=== PATIENT | male | born 1955 | race Caucasian/White ===

== ENCOUNTER 2017-05-05 00:56 | Inpatient (IN) | payer MEDICARE, OTHER ==
[~2017-05-05] VITALS: Ht 180.3 cm; Wt 64.9 kg
--- NOTE | 2017-05-05 00:58 | NUR ---
Patient brought into ER by sugarcane research technician. Patient agitated, threatening staff and patient's, threatening to elope, and attempting to elope the gurney. ERMD notified, orders received.
[2017-05-05] MEDS ORDERED: diphenhydrAMINE 50 MG/1 ML VIAL IM ONE (01:00)
[2017-05-05] MEDS ORDERED: LORAZEPAM 2 MG/1 ML VIAL IM ONE (01:00)
[2017-05-05] MEDS ORDERED: HALOPERIDOL LACTATE 5 MG/1 ML VIAL IM ONE (01:00)
[2017-05-05] MEDS ORDERED: diphenhydrAMINE 50 MG/1 ML VIAL ONE (01:14)
[2017-05-05] MEDS ORDERED: LORAZEPAM 2 MG/1 ML VIAL ONE (01:15)
[2017-05-05] MEDS ORDERED: HALOPERIDOL LACTATE 5 MG/1 ML VIAL ONE (01:15)
--- NOTE | 2017-05-05 01:30 | NUR ---
61 Y.O. MALE ADMITTED TO MHU FROM ER ON A 5150 FOR GD. Pt BROUGHT TO MHU VIA GURNEY ACCOMPANIED BY 2 clamshell operator. ACCORDING TO THE HOLD, THE CRISIS TEAM WAS CALLED TO EVALUATE Pt AT [facility] ER. Pt WAS SENT TO ER BY EMS AFTER APS RESPONDED TO THE MOTEL ROOM WHERE HE WAS LIVING. PER THE APS REPORT, Pt HAD NOT EATEN IN 3 DAYS AND APPEARED DELUSIONAL. Pt REPORTED HE HAS BIPOLAR DISORDER. DURING THE CRISIS TEAM ASSESSMENT, Pt APPEARED TO BE ACTIVELY HALLUCINATING (RESPONDING TO VOICES) AND DELUSIONAL. 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 Pt REFUSED TO GO TO A RECUPERATIVE CARE FACILITY THE ER ARRANGED FOR HIM. Pt WAS UNABLE TO VERBALIZE A VIABLE PLAN FOR SELF CARE AND CAN'T ANSWER BASIC QUESTIONS ABOUT WHERE TO GET FOOD OR HOUSING. RN CONCURS WITH HOLD. ADVISEMENT GIVEN TO Pt WITH Pt RIGHTS HANDBOOK. Pt TRANSFERRED TO [facility] WHERE HE BECAME AGGRESSIVE AND COMBATIVE WITH STAFF AND RECEIVED AN EMERGENCY IM OF HALDOL 5mg, ATIVAN 2mg, AND BENADRYL 50mg. UPON FACE TO FACE ASSESSMENT, Pt APPEARS TO REFLECT WHAT IS ON THE HOLD. Pt WAS UNKEMPT, DISHEVELED, AND MALODOROUS. Pt CLOTHING HAD VISIBLE STAINS AND SOILING. Pt WAS SOMEWHAT AGITATED UPON ADMISSION TO MHU, AND GUARDED WITH PERSONAL INFORMATION. Pt UNCOOPERATIVE WITH MOST ASSESSMENT QUESTIONS AND WAS SELECTIVELY MUTE. Pt STATED, "I DON'T WANT TO ANSWER ANY MORE OF YOUR QUESTIONS, LEAVE ME ALONE." APPEARS TO BE THOUGHT BLOCKING AND INTERNALLY PREOCCUPIED. Pt EXHIBITS POOR EYE CONTACT, PRESSURED SPEECH, AND RESTRICTED AFFECT. D/T LIMITED ASSESSMENT, A+O STATUS UNABLE TO BE DETERMINED AT THIS TIME. DENIES PAIN, IN NO ACUTE PHYSICAL DISTRESS AT THIS TIME. Pt PRESENT WITH LONG, THICK, DISCOLORED TOENAILS, PODIATRY CONSULT ORDERED. Pt REFUSED SHOWER. MEDICAL H/O BIPOLAR D/O, CVA, AND BLINDNESS WITH ALLERGY TO ASA. DR FAM AND DR LYNNE NOTIFIED OF ADMISSION, ORDERS RECEIVED. Pt BELONGINGS INVENTORIED WITH LICENSED STAFF PRESENT, Pt REFUSED TO SIGN PAPERWORK. BELONGINGS AND CONTRABAND PLACED IN UNIT LOCKER. Pt EDUCATED ON UNIT RULES, Pt RIGHTS, AND SAFETY, REFUSED TO PARTICIPATE.
--- NOTE | 2017-05-05 01:30 | NUR ---
Patient BIB private ambulance for Medical Clearance and GPS admission. Patient arrives labile and agitated, yelling at EMT's and staff, threatening to kill/hurt anyone that "touches him." Patient arrives on 5150 hold for GD. Per hold, patient was evaluated after Adult Protective Services responded to his hotel room and found that the patient had not eaten in days and appeared delusional. Per hold, patient hears auditory hallucinations, think's he is "Lul," and claims to own multiple businesses. IVETH reveiwed medical clearance performed at [facility], MSE performed, patient is Medically Clear at this time.
--- NOTE | 2017-05-05 01:34 | NUR ---
Pt. admitted to GPS, under care of Dr. Alexis Belongs List completed
[2017-05-05 01:35] VITALS: BP 136/84
[2017-05-05] MEDS ORDERED: ZOLPIDEM 5 MG TABLET PO PRN (01:45)
[2017-05-05] MEDS ORDERED: MAGNESIUM HYDROXIDE 30 ML LIQUID UDC PO PRN (01:45)
[2017-05-05] MEDS ORDERED: ACETAMINOPHEN 325 MG TABLET PO PRN (01:45)
[2017-05-05] MEDS ORDERED: LORAZEPAM 0.5 MG TABLET PO PRN (01:45)
[2017-05-05] MEDS ORDERED: MAG HYDROX/AL HYDROX/SIMETH 30 ML LIQUID UDC PO PRN (01:45)
--- NOTE | 2017-05-05 06:57 | NUR ---
REFUSED A.M. LABS. SLEPT 3 HOURS.
[2017-05-05 07:30] VITALS: BP 124/66
[2017-05-05 15:00] VITALS: BP 112/57
[2017-05-05 20:00] VITALS: BP 118/58
[2017-05-05] MEDS: QUETIAPINE FUMARATE 25 MG TABLET PO SCH (20:19)
[2017-05-06 04:29] LABS: *BILIRUBIN,URIN NEGATIVE (NEGATIVE); *BLOOD, URINE NEGATIVE (NEGATIVE); *CLARITY,URINE CLEAR (CLEAR); *COLOR,URINE YELLOW (YELLOW); *KETONES,URINE NEGATIVE (NEGATIVE); *PROTEIN,URINE NEGATIVE (NEGATIVE); *UROBILINOGEN,URINE 0.2 E.U./dl (NORMAL); LEUKOCYTE ESTERASE ,URINE NEGATIVE (NEGATIVE); NITRITE, URINE NEGATIVE (NEGATIVE); PH,URINE 5.5 (5.0-8.0); UGLUCOSE NEGATIVE (NEGATIVE)
[2017-05-06 04:35] LABS: BACTERIA,URINE NONE SEEN /HPF (NONE SEEN); RBC,URINE NONE SEEN /HPF (0-3); SQUAMOUS EPITHELIAL CELL,UR NONE SEEN /HPF (NONE SEEN); WBC,URINE 0-3 /HPF (0-3)
[2017-05-06 07:19] LABS: BASOPHILS # (AUTO) 0.2 K/uL (0.0-8.0); BASOPHILS % (AUTO) 2.1 % (0.0-2.0); EOSINOPHILS # (AUTO) 0.3 K/uL (0.0-0.7); EOSINOPHILS % (AUTO) 3.7 % (0.0-7.0); HEMATOCRIT 45.3 % (36.7-47.1); HEMOGLOBIN 15.1 g/dL (12.5-16.3); LYMPHOCYTES # (AUTO) 2.6 K/uL (20.0-40.0); LYMPHOCYTES % (AUTO) 28.4 % (20.5-51.5); MEAN CORPUSCULAR HEMOGLOBIN 29.6 uug (23.8-33.4); MEAN CORPUSCULAR HGB CONC 33 g/dL (32.5-36.3); MONOCYTES # (AUTO) 0.8 K/uL (2.0-10.0); MONOCYTES % (AUTO) 8.7 % (0.0-11.0); NEUTROPHILS # (AUTO) 5.2 K/uL (1.8-8.9); NEUTROPHILS % (AUTO) 57.1 % (38.5-71.5); PLATELET COUNT (AUTO) 197 K/uL (152-348); RED BLOOD CELL COUNT(AUTO) 5.09 MIL/uL (4.06-5.63); WHITE BLOOD COUNT (AUTO) 9.1 K/uL (3.6-10.2)
[2017-05-06 07:22] LABS: CREATININE 1.1 mg/dL (0.6-1.3); MAGNESIUM 1.8 mg/dL (1.8-2.4); PHOSPHOROUS 3.3 mg/dL (2.5-4.9); POTASSIUM 4.1 mmol/L (3.5-5.1)
[2017-05-06 07:59] VITALS: BP 139/75
[2017-05-06] MEDS: ESCITALOPRAM OXALATE 10 MG TABLET PO SCH (09:08)
[2017-05-06 16:49] VITALS: BP 118/71
[2017-05-06] MEDS: QUETIAPINE FUMARATE 25 MG TABLET PO SCH (20:17)
[2017-05-06 20:24] VITALS: BP 126/67
[2017-05-07 07:30] VITALS: BP 140/73
[2017-05-07] MEDS: ESCITALOPRAM OXALATE 10 MG TABLET PO SCH (08:36)
--- NOTE | 2017-05-07 16:17 | NUR ---
Initial DC Plan: Patient is currently homeless. When asked if pt would like assistance finding placement, pt stated he wants to "return to [place]." Pt may benefit from SNF placement. SW will follow up with MD and patient to discuss appropriate discharge plans. SW will form a safe and proper discharge.
[2017-05-07 16:56] VITALS: BP 131/60
[2017-05-07 20:20] VITALS: BP 129/66
[2017-05-07] MEDS: QUETIAPINE FUMARATE 25 MG TABLET PO SCH (20:58)
--- NOTE | 2017-05-08 06:09 | NUR ---
Pt is guarded, withdrawn from staff, give minimal disclosure. Pt has 1:1 sitter for safety and because he is legally blind. Compliant with medication, cooperative, denies suicidal ideation, contracts for safety inside and outside the hospital.Pt slept 9.3 hours and refused to shower.
[2017-05-08 07:46] VITALS: BP 122/70
[2017-05-08] MEDS: ESCITALOPRAM OXALATE 10 MG TABLET PO SCH (08:27)
--- NOTE | 2017-05-08 15:04 | NUR ---
Discharge Planning Note: SILVINO faxed placement inquiry to [facility] [[phone]]. SILVINO will follow up with ADORE or Aung at [facility] regarding inquiry.
[2017-05-08 16:15] VITALS: BP 130/62
[2017-05-08 20:00] VITALS: BP 124/67
[2017-05-08] MEDS: QUETIAPINE FUMARATE 25 MG TABLET PO SCH (20:56)
--- NOTE | 2017-05-08 22:00 | NUR ---
received to care, lying in bed, 1;1 sitter at side, for safety. compliant with medications and staff direction. as of 2200, he appears to be asleep. no distress noted. will continue to monitor closely.
--- NOTE | 2017-05-09 06:59 | NUR ---
pt slept for approx 8.25hrs through the night. no behavioral problems noted or reported during the shift.
[2017-05-09 07:30] VITALS: BP 129/67
[2017-05-09] MEDS: ESCITALOPRAM OXALATE 10 MG TABLET PO SCH (09:02)
--- NOTE | 2017-05-09 09:15 | NUR ---
Pt received laying in bed, guarded at times. Denies any suicidal ideations. Depressed/flat affect. Compliant with medications. No acute distress noted. 1:1 with patient.
[2017-05-09 16:00] VITALS: BP 129/68
[2017-05-09 19:44] VITALS: BP 121/65
[2017-05-09] MEDS: QUETIAPINE FUMARATE 25 MG TABLET PO SCH (20:07)
--- NOTE | 2017-05-10 06:13 | NUR ---
GPS: Pt.is awake,irritable and easily agitated when approached. Refused shower at this time. Verbally abusive to staff. Prefers to be left alone. Re-directed prn. Will monitor behavior for further escalation.
[2017-05-10 07:30] VITALS: BP 126/71
[2017-05-10] MEDS: ESCITALOPRAM OXALATE 10 MG TABLET PO SCH (09:00)
[2017-05-10 16:00] VITALS: BP 125/74
[2017-05-10 20:00] VITALS: BP 142/76
[2017-05-10] MEDS: QUETIAPINE FUMARATE 25 MG TABLET PO SCH (20:28)
[2017-05-11 07:30] VITALS: BP 124/74
[2017-05-11] MEDS: ESCITALOPRAM OXALATE 10 MG TABLET PO SCH (10:28)
[2017-05-11 15:00] VITALS: BP 139/68
--- NOTE | 2017-05-11 18:18 | NUR ---
PATIENT STILL RESPONDING TO INTERNAL STIMULI AND AUDITORY HALLUCINATIOS, UP IN CHAIR IN BESS WAY IN AFTER NOON TOLERATED FAIR 1;1 SITTER AT BEDSIDE. CONTIUNE
[2017-05-11 20:22] VITALS: BP 139/68
[2017-05-11] MEDS: QUETIAPINE FUMARATE 25 MG TABLET PO SCH (20:48)
[2017-05-12 07:30] VITALS: BP 124/67
[2017-05-12] MEDS: ESCITALOPRAM OXALATE 10 MG TABLET PO SCH (08:08)
[2017-05-12 20:00] VITALS: BP 117/65
[2017-05-12] MEDS: QUETIAPINE FUMARATE 25 MG TABLET PO SCH (20:03)
--- NOTE | 2017-05-13 06:32 | NUR ---
GPS: Pt.is awake,easily agitated when approached. Verbally abusive to staff.SLEPT 07:15 through the night. patient become verbally abusive this morning to staff ,when assisted to use restroom. Prefers to be left alone. Re-directed prn. Will monitor behavior for further escalation. continue on 1:1 sitter @ bedside for safety.
[2017-05-13 07:30] VITALS: BP 118/69
[2017-05-13] MEDS: ESCITALOPRAM OXALATE 10 MG TABLET PO SCH (08:01)
[2017-05-13 15:11] VITALS: BP 118/74
[2017-05-13] MEDS: QUETIAPINE FUMARATE 25 MG TABLET PO SCH (20:06)
[2017-05-13 20:31] VITALS: BP 124/69
--- NOTE | 2017-05-14 06:19 | NUR ---
GPS: REMAIN CALM AND COOPERATIVE. SLEPT 07:30 HRS THROUGH THE NIGHT.CONTINUE ON 1:1 SITTER @ BEDSIDE FOR SAFETY ALL THE TIMES. NO BEHAVIOR PROBLEM NOTED THIS TIME. CONTINUE PLAN OF CARE.
[2017-05-14 07:54] VITALS: BP 126/64
[2017-05-14] MEDS: ESCITALOPRAM OXALATE 10 MG TABLET PO SCH (08:14)
--- NOTE | 2017-05-14 09:49 | NUR ---
DC Note: Patient will be discharged to [facility] [[address] [place], [place] [id number]; [phone]] via ambulance at 12:00 pm. Spoke with Meka at the facility who stated they would accept the patient today. Patient is assigned to room 110 A. Patient has no family to contact or to assist with discharge planning. Patient is aware and agreeable with discharge plans as well. Patient will follow-up with (Psychiatrist) and (Juvenile Corrections Officer) at the facility.
--- NOTE | 2017-05-14 14:00 | NUR ---
Pt left unit on [facility] accompanied by 2 press operator apprentice to ambulance. Pt remains calm and cooperative. No aggressive or combative behavior noted. Able to make most needs known. Left with all noted paperwork and belongings. V/S stable. In no acute distress
== END 2017-05-14 14:00 | DRG 885 ==
LOC: ER 01:03 → GPS 01:22
PROVIDERS: ADMIT Psychiatry & Neurology Psychiatry; ATTEND Internal Medicine
DX: F29 Unspecified psychosis not due to a substance or known physiological condition (principal); F03.90 Unspecified dementia, unspecified severity, without behavioral disturbance, psychotic disturbance, mood disturbance, and anxiety; F32.9 Major depressive disorder, single episode, unspecified; Z59.0 Homelessness; Z79.899 Other long term (current) drug therapy; H54.7 Unspecified visual loss; H26.9 Unspecified cataract
CPT/HCPCS: 36415; 83735; 84100; 85025; 87086; 93005; A4663; J1200; J1630; J2060